=== PATIENT | male | born 1950 | race Caucasian/White ===

== ENCOUNTER → 2019-07-13 09:51 | Outpatient (BNVA) | payer MEDICARE, OTHER, SELFPAY | PROVIDERS: Family Provider Nurse Practitioner Family; PCP Nurse Practitioner Family; Visit Provider Urology | DX: R97.20 Elevated prostate specific antigen [PSA] (principal) | CPT/HCPCS: 84153 ==

== ENCOUNTER → 2019-07-18 11:09 | Outpatient (BNVA) | payer MEDICARE, OTHER, SELFPAY | PROVIDERS: Family Provider Nurse Practitioner Family; PCP Nurse Practitioner Family; Visit Provider Urology | DX: R97.20 Elevated prostate specific antigen [PSA] (principal) | CPT/HCPCS: 81001 ==

== ENCOUNTER → 2020-01-18 15:05 | Outpatient (BNVA) | payer MEDICARE, OTHER, SELFPAY | PROVIDERS: Family Provider Nurse Practitioner Family; PCP Nurse Practitioner Family; Visit Provider Urology | DX: R97.20 Elevated prostate specific antigen [PSA] (principal) | CPT/HCPCS: 84153 ==

== ENCOUNTER → 2020-01-23 12:54 | Outpatient (BNVA) | payer MEDICARE, OTHER, SELFPAY | PROVIDERS: Family Provider Nurse Practitioner Family; PCP Nurse Practitioner Family; Visit Provider Urology | DX: C64.2 Malignant neoplasm of left kidney, except renal pelvis (principal); R97.20 Elevated prostate specific antigen [PSA] | CPT/HCPCS: 81001 ==

== ENCOUNTER → 2020-10-17 10:46 | Outpatient (BNVA) | payer MEDICARE, SELFPAY | PROVIDERS: Family Provider Nurse Practitioner Family; PCP Nurse Practitioner Family; Visit Provider Urology | DX: R97.20 Elevated prostate specific antigen [PSA] (principal) | CPT/HCPCS: 84153 ==

== ENCOUNTER → 2020-10-21 09:22 | Outpatient (BNVA) | payer MEDICARE, SELFPAY | PROVIDERS: Family Provider Nurse Practitioner Family; PCP Nurse Practitioner Family; Visit Provider Urology | DX: R97.20 Elevated prostate specific antigen [PSA] (principal); C64.2 Malignant neoplasm of left kidney, except renal pelvis | CPT/HCPCS: 81003 ==

== ENCOUNTER 2021-04-23 12:19 | Outpatient (CLI) | payer MEDICARE, SELFPAY ==
--- NOTE | 2021-04-23 15:35 | N.ONRAD NP_ITS ---
Radiation Oncology New Patient Visit Patient: Emil Grissom MR#: [id number] : 1950> Age: 71> Sex: Male> Dictated by: Dr. Armin Bowling Date of Service: 04/23/2021 Referring Physician(s) : Dr. Abhay Wilder Diagnosis: Prostate, adenocarcinoma, PSA 4.7, Adel 4+3 equal 7 (grade group 3), Stage T1c N0M0; Risk Group: Unfavorable Intermediate Radiotherapy to date: Summary > No prior radiation therapy. Chief Complaint / History of Present Illness: Mr. Grissom is a 71-year-old gentleman with a history of a left nephrectomy for renal cell carcinoma a little over 9 years ago who was referred to Dr. Abhay Wilder because of a history of mildly elevated PSAs. His exam at that time on 12/17/2020 revealed a smooth firm prostate with no suspicious abnormalities. Dr. Wilder referred him for an MR of the pelvis. The prostate gland measured 4.3 x 3.2 x 5.1 cm with a volume of 46 cc. In the right peripheral zone and an 11 mm focus with a PI-RADS 4 category was seen. The prostate capsule was intact and there were no enlarged lymph nodes. Because of this finding Dr. Wilder recommended prostate biopsies. The time of biopsy the ultrasound revealed a hypoechoic area at the right base. No abnormality was noted in the mid gland. Focused biopsies were taken from the right base and right mid gland and then routine geographic biopsies were obtained from the right apex and the left side of the prostate. The biopsies from the right apex and the left lobe of the prostate were all negative. And the right mid gland Adel 4+3 adenocarcinoma was obtained in 4 out of 4 cores. The percent of biopsy tissue involved was 16% and a total linear millimeters of carcinoma was 6 mm. On the right base, Adel 4+3 carcinoma was obtained in 3 out of 3 cores. The percent of biopsy tissue involved by tumor was 99% in the total linear millimeters of carcinoma was 27 mm. No periprosthetic tissue involvement was found in either area. Bone scan and CT of the abdomen and pelvis were obtained for staging. The bone scan was negative. The CT was negative for any metastatic disease, though indeterminant densities were noted in the right lobe of the liver and in the inferior pole of the right kidney. A follow-up MRI was recommended of these [address] Wilder saw Mr. Grissom 04/01/2021 to discuss his pathology and review his staging. He feels that the abnormalities in the liver and right kidney are benign and do not need additional imaging. He discussed both radical prostatectomy and prostate radiation with Mr. Grissom. Mr. Grissom wants to proceed with radiation and is referred for evaluation and recommendations. Current Medications: Ascorbic Acid, aspirin, cholecalciferol, hydroCHLOROthiazide, multivitamin, olmesartan Medoxomil, omega-3 Fatty Acids, saw [place]. Allergies: No Known Allergies Medical History: History of renal cell cancer. No history of collagen vascular disease. No previous radiation therapy. Surgical History: Left nephrectomy. Family History: Father is at age 70 having experienced stroke. Social History: Last screened on 04/23/2021 - Never smoked. Last screened on 04/23/2021 - Drinks occasionally. Current Complaints / Review of Systems: . General: No weight change, decreased appetite, fever night sweats, weakness or fatigue. Head /neck: No change in vision, cataracts, glaucoma, nosebleeds, sore throats, hoarseness. He does have hearing loss. Lungs: No cough, hemoptysis, wheezing, lung disease, pleurisy, shortness of breath, or loud snoring. Cardiac: No chest discomfort, tightness, or pain, irregular heartbeat, orthopnea, lower extremity swelling, heart murmur, varicose veins. He does have high blood pressure and is on medication. Gastrointestinal: No dysphagia, nausea, heartburn, abdominal pain, gallbladder disease, change in bowel habits, bleeding. Genitourinary: No hematuria, kidney stones, urinary frequency, hesitancy, dysuria, incontinence,. He has nocturia x1. Nervous system: No headaches, head injury, blackouts, double vision, dizziness, seizures, numbness, paralysis or stroke, tremors or shakes, difficulty walking, difficulty speaking, difficulty writing, change in memory, depression, or anxiety. Bones and joints: No joint pain, swollen joints, back pain or injury, or gout. He has mild morning stiffness. Hematologic no anemia or blood transfusions. Vital Signs: Performed on 04/23/2021 1:28 PM BMI - 32.17 kg/m2 (high), Height - 70 in, Weight - 224.2 lbs, Temperature - 97.8 f, Pulse - 88 /min, Respiration - 18 /min, O2 Sat - 97 %, Pain - 0, Fatigue - 0 and BP - 145/ 92 mm(hg)(high). Physical Exam: Alert, oriented, in no acute distress. He has no cervical or supraclavicular lymphadenopathy. Lungs are clear to percussion. Heart on auscultation no rales rhonchi or wheezes. Heart rhythm regular. No murmur gallop or rub. Abdomen no distention. Bowel sounds normal. No organomegaly or mass or tenderness. Musculoskeletal no bone tenderness. Normal gait without assistance. Rectal exam was not performed. Dr. Wilder found the prostate to be firm and smooth. The patient indicated Dr. Dias, who has also seen him, has never detected any abnormality on exam. Performance Status: ECOG 0 Pathology: Prostatic adenocarcinoma, Adel score 4+3 equal 7 in 7 of 7 cores from the right mid gland and base, grade group 3 Lab: PSA 4.7 Imaging: See HPI Impression: Asymptomatic carcinoma of the prostate, grade group 3, risk group unfavorable intermediate. Mr. Grissom was very firm in that he does not desire surgery. He wishes to proceed with external beam radiation. I discussed with him his grade group/risk group and explained that the NCCN guidelines recommend ADT in conjunction with external beam radiation in this situation. I explained the rationale for ADT. I told him we usually start it 4 -6 weeks before the initiation of external beam radiation. I told him in the setting of unfavorable intermediate disease that treatment of pelvic nodes can be considered according to NCCN guidelines. I told him Dr. Garza will make that final determination. I reviewed the side effects and possible complications of radiation. I discussed that there is a rare but real risk of bowel or bladder injury that could require surgery or even a permanent ostomy. I also discussed that ADT can produce night sweats, hot flashes, fatigue, mood swings, and impotence. Also discussed the potential for impotence related to radiation. We also discussed his history of renal cell carcinoma of the kidney and the abnormalities that were seen on the recent CT scan in the right lobe of the liver and the right kidney. I suggested that when I refer him to Dr. Abbott for the initiation of hormonal therapy that we also request Dr. Abbott follow him long-term for the renal cell carcinoma. He is in agreement with that. Plan: Referred to Dr. Abbott for the initiation of ADT. Simulate for external beam radiation in about [address] Abbott to follow him for his renal cell carcinoma and the abnormalities seen in the liver and right kidney on recent CT. Signed by: 04/23/2021 3:34:33 PM <<Signature on File>> Time spent with patient: CPT Code: CPT Code:
== END 2021-04-23 12:20 | disposition home or self-care (01) ==
LOC: ONCMED 12:27
PROVIDERS: PCP Nurse Practitioner Family; Visit Provider Specialist
DX: C61 Malignant neoplasm of prostate (principal); Z90.5 Acquired absence of kidney; Z85.528 Personal history of other malignant neoplasm of kidney; Q44.7 Other congenital malformations of liver
CPT/HCPCS: 99205

== ENCOUNTER 2021-04-30 12:29 | Outpatient (CLI) | payer MEDICARE, SELFPAY ==
--- NOTE | 2021-04-30 14:38 | ONC CON_ITS ---
Dr. Abbott New Patient Note Patient: Emil Grissom Unit #: [id number]: 1950 Dicatated By: Smita Abbott M.D.Date of Visit: Apr 30, 2021 Onc MED New Patient/Consult Referring Physician: Abhay Wilder History of Present Illness: Mr. Emil Grissom, is a 71-year-old gentleman with a history of mildly elevated PSA underwent urology evaluation and LOR done on December 17, 2020 showed smooth firm prostate with no suspicious abnormality. Patient had some miscommunication with Dr. Dias's office regarding lab work-up schedule, decided to go to Dr. Wilder, urologist in [place], who ordered MRI scan of the pelvis which was done on January 20, 2021 showed lesion within the right peripheral zone with features suspicious for prostate carcinoma PI-RADS 4, no enlarged lymph nodes. Dr. Wilder recommended prostate biopsies patient underwent ultrasound-guided prostate gland biopsies on February 27, 2021 which showed biopsy from right apex and left lobe of prostate were negative. In the right mid gland shows [place] score 4+3 adenocarcinoma in 4 of 4 cores with 16% involvement. On the right base, Ani score 4+3 carcinoma was seen in 3 out of 3 cores, 99% involvement. No periprostatic tissue involvement. Subsequently patient underwent CT scan of abdomen pelvis and bone scan on March 26, 2021 which shows no evidence of metastatic disease, though indeterminant densities were noted in the right lobe of the liver size was about 1 cm and in the inferior pole of right kidney. A follow-up MRI scan was recommended to evaluate these 2 areas but as per patient Dr. Wilder reviewed the CT scan of the abdomen pelvis and felt those abnormalities in the liver and right kidney are benign so no additional imaging was done. Treatment options including radical prostatectomy and prostate radiation were discussed, patient opted for radiation therapy. [facility] [place] [facility] Patient has history of renal cell carcinoma, status post left nephrectomy, as per patient it was done about 9 years ago, he was followed by Dr. Dias with regular chest x-rays and lab and after 5 years of follow-up, as per patient he was informed That no further follow-up is needed patient denies smoking, occasional alcohol use patient denies any dysuria or hematuria, denies any new bony pains Past Medical History: Mr. Grissom's medical history consists of history of renal cell cancer. Past Surgical History: Mr. Grissom's surgical/procedural history consists of left nephrectomy. Medications: Ascorbic Acid 1 Tablet (of 500 mg) Oral daily, Aspirin 1 Tablet (of 81 mg) Tablet, enteric coated Oral daily, Cholecalciferol 1 Capsule (of 10 mcg ) Oral daily, hydroCHLOROthiazide 1 Tablet (of 12.5 mg) Oral daily, Multivitamin 1 Tablet Oral daily, Olmesartan Medoxomil 1 Tablet (of 20 mg) Oral daily, [place]-3 Fatty Acids 1 Capsule (of 1000 mg) Oral daily, Saw [place] 1 Tablet (of 160 mg) Oral daily Allergies: No Known Allergies. Social History: Mr. Grissom is . Mr. Grissom has never smoked. He drinks occasionally. Family History: Mr. Grissom's father at age 70: stroke. Review Of Symptoms: Review of Systems is not available for this patient. Vital Signs: Performed on Apr 30, 2021 13:07: 0, 0, 32.00 (HIGH), 2.19 sq.m, 70.00 in, 99 %, 81 /min, 18 /min, 139/92 mm(hg), 98.1 F (LOW), and 223 lbs (LOW). Performance Status: 0 - Fully active, able to carry on all predisease activities without restrictions. (ECOG) Physical Examination: ENMT - No mouth sores, no thrush, no jaundice, Respiratory - Lungs are clear to auscultation, Cardiovascular - Regular rate and rhythm of heart, Abdomen - Soft, bowel sounds present, Extremities - No visible edema. Lab/Imaging: Most recent lab results are not available for this patient. Impression: T1c, N0 M0, adenocarcinoma of the prostate per ultrasound-guided biopsy of prostate gland done on February 27, 2021 which confirmed adenocarcinoma in the right mid gland Ani score 4+3, 4 out of 4 cores with 60% involvement and on the right base, [place] score 4+3 carcinoma in 3 out of 3 cores, with a 99% involvement, no periprostatic tissue involvement Stage I, unfavorable intermediate Bone scan/CT scan of abdomen pelvis done on March 26, 2021 shows no evidence of metastatic disease but incidental finding shows 1 cm hypoattenuated lesion within the right lobe of the liver near the hepatic dome with indeterminate density and an exophytic lesion at the inferior pole of right kidney measuring 2.2 cm with indeterminate density, status post left nephrectomy History of renal cell carcinoma status post left nephrectomy over 9 years ago Plan: Discussed with patient regarding his disease status and treatment options, clinically, patient has early stage prostate cancer, Ani score 4+3, features suggestive of unfavorable intermediate as his PSA was 4.7 at the time of diagnosis,., Based on NCCN guidelines, would recommend short course of ADT with Zoladex 10.8 mg IM every 3 months x2 in neoadjuvant/concurrent/adjuvant fashion. Patient has already seen radiation oncology and scheduled to start radiation therapy 4 to 6-week after first dose of Zoladex. As far as incidental finding of hepatic lesion and right kidney lesions concern, we will CT scan of abdomen pelvis in 3 months and if there is a change in size Of any lesion, may consider biopsy. All the side effect possible benefits associated with ADT including but not limited to, hot flashes, generalized weakness and fatigue, mood swings, fatigue, erectile dysfunction, fluid retention were mentioned. Further teaching will be done by chemotherapy nurse. We will obtain approval from his insurance prior to the treatment and patient return to clinic 3 months after first dose of Zoladex, with PSA and follow-up CT scan of abdomen pelvis. Signed By: Smita Abbott M.D. <<Signature on File>>
== END 2021-04-30 12:30 | disposition home or self-care (01) ==
LOC: ONCMED 12:34
PROVIDERS: PCP Nurse Practitioner Family; Visit Provider Internal Medicine Hematology & Oncology
DX: C61 Malignant neoplasm of prostate (principal); K76.9 Liver disease, unspecified; N28.9 Disorder of kidney and ureter, unspecified; Z85.528 Personal history of other malignant neoplasm of kidney; Z79.818 Long term (current) use of other agents affecting estrogen receptors and estrogen levels
CPT/HCPCS: 99205

== ENCOUNTER 2021-05-05 12:57 | Outpatient (CLI) | payer MEDICARE, SELFPAY ==
--- NOTE | 2021-05-05 13:15 | CT_ITS ---
WS: [id number] CT ABDOMEN AND PELVIS WITH CONTRAST HISTORY: MALIGNANT NEOPLASM OF PROSTATE,LIVER DISEASE, disorder of kidneys. LEFT renal cancer. TECHNIQUE: Imaging performed of the abdomen and pelvis with IV contrast. Single phase imaging of the abdomen. Coronal and sagittal reformats are submitted. All CT scans at [facility] use at edi st one of these dose optimization techniques: automated exposure control; mA and/or kV adjustment per patient size (includes targeted exams where dose is matched to clinical indication); or iterative re construction. IV CONTRAST: Visipaque 320; 95 mL IV. Oral contrast: Yes. DLP: 1197.35 mGycm COMPARISON: 03/26/2021 and 09/04/2011 Lower thorax: Lung bases are clear. Heart is normal size. Small hiatal hernia. Liver/biliary system: Again noted is a low-attenuation lesion in the diaphragmatic dome measuring 8 m m in diameter which is unchanged. No additional or new lesions within the liver. Normal portal vein. Gallbladder: Normal. No gallstones or wall thickening. No pericholecystic fluid. Pancreas: Normal size pancreas and pancreatic duct. No adjacent inflammation. Spleen: Normal size spleen. No mass or infarct. Adrenal glands: Normal RIGHT adrenal gland. Prior LEFT adrenalectomy. Right kidney: Normal size kidney. Low-attenuation mass from the mid lateral kidney measures 1.9 cm in diameter and unchanged since 03/26/2021. This was also present in 2011 but this nodule has increased in size from 1.1 cm. Probably representing a small complex cyst but recommend continued evaluation du e to its increase in size. No obstruction. Cortical scar lower pole. Left kidney: Prior LEFT nephrectomy. No mass at the renal bed. Aorta: Mild atherosclerosis with no aneurysm. Lymphadenopathy: None. Free fluid: None. GI tract: Normal appendix. Mild diffuse constipation. No GI tract obstruction. Abdominal wall: Small fat-containing umbilical hernia. Pelvis: No free fluid or adenopathy within the pelvis. Well-distended urinary bladder. Prostate gland is slightly enlarged with central calcifications. Inguinal canals are patent bilaterally containing fat only. Bones: No osteoblastic or osteolytic lytic bone disease. CT/CT abdomen pelvis w con* [id number] IMPRESSION: 1. Status post LEFT adrenalectomy and LEFT nephrectomy. No recurrent mass or a denopathy in the renal bed. 2. Stable indeterminate lesion along the RIGHT diaphragmatic surface of the li melany. Low-attenuation lesion measures 8 mm. Recommend additional continued follo w-up. 3. Indeterminate low-attenuation lesion in the mid lateral RIGHT kidney. No in crease in size since 03/26/2021. This low-attenuation lesion was present in 2011 but increased in size from 1.1 to 1.9 cm. Suspect this probably a complex cyst . This can also be reevaluated on follow-up CT or MRI evaluation along with the hepatic lesion.
[2021-05-05 14:31] LABS: Blood Urea Nitrogen 18 mg/dL (8-23); Glomerular Filtration Rate 54.7 mL/min (90-130)
[2021-05-05] MEDS: iodixanol 320 mg/mL 100mL Btl IV (14:45)
[2021-05-05] MEDS: iohexol 300 mg/mL 50 mL Btl PO (14:46)
== END 2021-05-05 12:58 | disposition home or self-care (01) ==
PROVIDERS: PCP Nurse Practitioner Family; Visit Provider Internal Medicine Hematology & Oncology
DX: C61 Malignant neoplasm of prostate (principal); N28.9 Disorder of kidney and ureter, unspecified; K76.9 Liver disease, unspecified; Q89.1 Congenital malformations of adrenal gland; Z90.5 Acquired absence of kidney
CPT/HCPCS: 74177; 82565; 84520; Q9967

== ENCOUNTER 2021-05-07 10:35 | Outpatient (CLI) | payer MEDICARE, SELFPAY ==
[2021-05-07] MEDS: lidocaine 1% INJ 20 mL INJECTION (11:10)
[2021-05-07] MEDS: goserelin acetate 10.8 mg Implant SUBCUT (11:25)
== END 2021-05-07 10:36 | disposition home or self-care (01) ==
PROVIDERS: PCP Nurse Practitioner Family; Visit Provider Internal Medicine Hematology & Oncology
DX: C61 Malignant neoplasm of prostate (principal); Z79.818 Long term (current) use of other agents affecting estrogen receptors and estrogen levels
CPT/HCPCS: 96372; 96402; J9202

== ENCOUNTER 2021-07-24 06:46 | Outpatient (RCR) | payer MEDICARE, SELFPAY ==
--- NOTE | 2021-06-24 | CT_ITS ---
Radiation Therapy Planning CT images; total exam DLP: 983.33 mGy-cm MTDD
--- NOTE | 2021-06-30 09:46 | ONCRAD TMN_ITS ---
Radiation Oncology Treatment Management Note Patient Name: Emil Grissom Date of : 1950 Date of Service: 06/30/2021 Attending Physician: Torstne Garza M.D. Emil Grissom is a 71 year old white male diagnosed with a clinical stage IIC (T1cN0), unfavorable intermediate risk prostate. He initially was identified to have a PSA level of 4.7 ng/mL in November of 2020. A TRUS biopsy performed on February 27, 2021 identified a 46 cc prostate. The pathology report diagnosed an adenocarcinoma of the prostate gland with a Ani Score of 4+3 (Grade Group 3) involving 16% of the right mid-core, and 99% of the sample from the right base, A nuclear bone scintigraphy and thoracoabdominopelvic CT scan excluded metastatic disease. He was prescribed the first cycle of Zoladex on May 07, 2021 by Smita Abbott M.D. The patient has received 3 Gy of a prescribed 60 Jeffery to the prostate and seminal vesicles with an intensity modulated radiotherapy plan utilizing a step and shoot treatment technique. Upon review of systems, he denied any gastrointestinal complaints related to radiotherapy. On physical examination, the patient weighed 223 lbs. His temperature was 97.2 ???F and the blood pressure was 152/87 mmHg. The pulse was 67 bpm and his respiratory rate was 16. No erythema within the treatment pickering. Continue hypofractionated prostate radiotherapy as prescribed. Signed by: Dr. Torsten Garza 06/30/2021 9:44:14 AM
--- NOTE | 2021-07-07 10:17 | ONCRAD TMN_ITS ---
Radiation Oncology Weekly Treatment Management Patient: Jaciel Moncada MR#: [id number] : 1950> Attending Physician: Dr. Armin Bowling Date of Service: 07/07/2021 Referring Physician(s) : Smita Abbott M.D. Diagnosis: C61 - Malignant neoplasm of prostate, Diagnosed 05/01/2021 (Active) Radiotherapy to date: Course: Prostate 2021, Treatment Site: Prostate Ca, Ref. ID: [id number], Energy: 15X, Dose/Fx (cGy): 300, #Fx: , Dose Correction (cGy): 0, Total Dose (cGy): 1,800, Start Date: 06/30/2021, End Date: 07/07/2021, Elapsed Days: 7 Reason for visit: The patient is being seen today as part of their regularly scheduled weekly on treatment visits to assess for acute toxicities from radiotherapy. Review of Systems: Performance status is normal. Appetite is normal. He has no bowel complaints. After 3 treatments, he did develop urinary intermittency. His stream starts normally and then will weaken and sometimes cut off. Several minutes later he can go back and empty his bladder normally. We discussed the use of Flomax, including the rare episode of severe orthostatic hypotension. For now we are not going to start it, but he understands that he may request it at any time. Vital Signs: Performed on 07/07/2021 9:40 AM BMI - 32.457 kg/m2 (high), Height - 70 in, Weight - 226.2 lbs, Temperature - 96.3 f, Pulse - 63 /min, Respiration - 20 /min, O2 Sat - 99 %, Pain - 1, Fatigue - 0 and BP - 153/ 84 mm(hg)(high/). Physical Exam: Alert, oriented, no acute distress. No skin reaction. No inguinal lymphadenopathy. No lower pelvic tenderness. Imaging: Radiation therapy imaging related to accurate target localization (i.e. KV, MV and CBCT) was reviewed. Appropriate changes, if any, were made to ensure treatment accuracy. Plan: Continue hypofractionated radiation per treatment plan. Signed by: Dr. Armin Bowling 07/07/2021 10:16:27 AM
--- NOTE | 2021-07-14 09:46 | ONCRAD TMN_ITS ---
Radiation Oncology Treatment Management Note Patient Name: Emil Grissom Date of : 1950 Date of Service: 07/14/2021 Attending Physician: Torsten Garza M.D. Emil Grissom is a 71 year old white male diagnosed with a clinical stage IIC (T1cN0), unfavorable intermediate risk prostate. He initially was identified to have a PSA level of 4.7 ng/mL in November of 2020. A TRUS biopsy performed on February 27, 2021 identified a 46 cc prostate. The pathology report diagnosed an adenocarcinoma of the prostate gland with a Ani Score of 4+3 (Grade Group 3) involving 16% of the right mid-core, and 99% of the sample from the right base, A nuclear bone scintigraphy and thoracoabdominopelvic CT scan excluded metastatic disease. He was prescribed the first cycle of Zoladex on May 07, 2021 by Smita Abbott M.D. The patient has received 33 Gy of a prescribed 60 Jeff[place] to the prostate and seminal vesicles with an intensity modulated radiotherapy plan utilizing a step and shoot treatment technique. Upon review of systems, he denied any gastrointestinal complaints related to radiotherapy. His urinary stream has improved with Flomax. On physical examination, the patient weighed 223 lbs. His temperature was 96.9 ???F and the blood pressure was 160/81 mmHg. The pulse was 77 bpm and his respiratory rate was 18. There was no erythema within the treatment pickering. Continue hypofractionated prostate radiotherapy as planned. Signed by: Dr. Torsten Garza 07/14/2021 9:45:02 AM
--- NOTE | 2021-07-21 09:32 | ONCRAD TMN_ITS ---
Radiation Oncology Treatment Management Note Patient Name: Emil Grissom Date of : 1950 Date of Service: 07/21/2021 Attending Physician: Torsten Garza M.D. Emil Grissom is a 71 year old white male diagnosed with a clinical stage IIC (T1cN0), unfavorable intermediate risk prostate. He initially was identified to have a PSA level of 4.7 ng/mL in November of 2020. A TRUS biopsy performed on February 27, 2021 identified a 46 cc prostate. The pathology report diagnosed an adenocarcinoma of the prostate gland with a Ani Score of 4+3 (Grade Group 3) involving 16% of the right mid-core, and 99% of the sample from the right base, A nuclear bone scintigraphy and thoracoabdominopelvic CT scan excluded metastatic disease. He was prescribed the first cycle of Zoladex on May 07, 2021 by Smita Abbott M.D. The patient has received 48 Gy of a prescribed 60 Jeffery to the prostate and seminal vesicles with an intensity modulated radiotherapy plan utilizing a step and shoot treatment technique. Upon review of systems, he denied any gastrointestinal complaints related to radiotherapy. On physical examination, the patient weighed 223 lbs. His temperature was 96.5 ???F and the blood pressure was 147/89 mmHg. The pulse was 65 bpm and his respiratory rate was 16. There was no erythema within the treatment pickering. Continue hypofractionated prostate radiotherapy as prescribed. Signed by: Dr. Torsten Garza 07/21/2021 9:30:49 AM
== END 2021-07-24 23:59 | disposition home or self-care (01) ==
LOC: ONCMED 06:46
PROVIDERS: PCP Nurse Practitioner Family; Visit Provider Radiology Radiation Oncology
DX: Z51.0 Encounter for antineoplastic radiation therapy (principal); C61 Malignant neoplasm of prostate; K76.9 Liver disease, unspecified; N28.9 Disorder of kidney and ureter, unspecified; Z79.899 Other long term (current) drug therapy
CPT/HCPCS: 77300; 77301; 77334; 77336; 77338; 77385; 77470

== ENCOUNTER 2021-08-22 06:39 | Outpatient (RCR) | payer MEDICARE, SELFPAY ==
--- NOTE | 2021-07-25 09:16 | N.ONRD TS_ITS ---
Radiation OncologyTreatment Summary Patient Name: Emil Grissom Date of : 1950 Date of Service: 07/25/2021 Attending Physician: Torsten Garza M.D. Emil Grissom has completed prostate radiotherapy for the management of a clinical stage IIC (T1cN0), unfavorable intermediate risk prostate. He initially was identified to have a PSA level of 4.7 ng/mL in November of 2020. A TRUS biopsy performed on February 27, 2021 identified a 46 cc prostate. The pathology report diagnosed an adenocarcinoma of the prostate gland with a Ani Score of 4+3 (Grade Group 3) involving 16% of the right mid-core, and 99% of the sample from the right base, A nuclear bone scintigraphy and thoracoabdominopelvic CT scan excluded metastatic disease. He was prescribed the first cycle of Zoladex on May 07, 2021 by Smita Abbott M.D. Daily radiotherapy was administered between the dates of June 30, 2021 through July 25, 2021. A prescribed dose of 60 Gy was delivered in 20 fractions encompassing 26 elapsed days. The prostate gland and proximal seminal vesicles were treated utilizing an IMRT plan using a step and shoot treatment technique. The plan arranged nine gantry angles (0???, 43???, 60???, 100???, 150???, 210???, 260???, 260???, 300???, and 330???) replicating an arc. The collimator rotation was 0???. The field sizes measured between 7.4 cm x 9.5 cm to 8.8 cm x 9.5 cm. The SSDs measured a minimum of 79.2 cm to a maximum of 87.6 cm. The ports delivered 137 MU, 118 MU, 96 MU, 115 MU, 106 MU, 100 MU, 123 MU, 91 MU, and 115 MU corresponding to the gantry angles described. All treatments were performed on the [employer] linear accelerator with an isocentric technique. The dose was calculated by Anisotropic Analytic Algorithm. A photon energy of 15 MV was prescribed. The plan was normalized to deliver 100% of the prescription dose to 95% of the planning target volume. Signed by: Dr. Torsten Garza 07/25/2021 9:14:57 AM
[2021-08-07 13:48] LABS: Prostate Specific Antigen 0.224 ng/mL (0-4)
[2021-08-07] MEDS: lidocaine 1% INJ 20 mL INJECTION (15:30)
[2021-08-07] MEDS: goserelin acetate 10.8 mg Implant SUBCUT (15:40)
--- NOTE | 2021-08-07 16:32 | ONC FU_ITS ---
Dr. Abbott follow up note Patient: Emil Grissom Unit #: [id number]: 1950 Dicatated By: Smita Abbott M.D.Date of Visit:Aug 07, 2021 Onc Med Follow-up/Prog Note History of Present Illness: Mr. Emil Grissom, is a 71-year-old gentleman with a history of mildly elevated PSA underwent urology evaluation and LOR done on December 17, 2020 showed smooth firm prostate with no suspicious abnormality. Patient had some miscommunication with Dr. Dias's office regarding lab work-up schedule, decided to go to Dr. Wilder, urologist in [place], who ordered MRI scan of the pelvis which was done on January 20, 2021 showed lesion within the right peripheral zone with features suspicious for prostate carcinoma PI-RADS 4, no enlarged lymph nodes. Dr. Wilder recommended prostate biopsies patient underwent ultrasound-guided prostate gland biopsies on February 27, 2021 which showed biopsy from right apex and left lobe of prostate were negative. In the right mid gland shows Ani score 4+3 adenocarcinoma in 4 of 4 cores with 16% involvement. On the right base, Linneus score 4+3 carcinoma was seen in 3 out of 3 cores, 99% involvement. No periprostatic tissue involvement. Subsequently patient underwent CT scan of abdomen pelvis and bone scan on March 26, 2021 which shows no evidence of metastatic disease, though indeterminant densities were noted in the right lobe of the liver size was about 1 cm and in the inferior pole of right kidney. A follow-up MRI scan was recommended to evaluate these 2 areas but as per patient Dr. Wilder reviewed the CT scan of the abdomen pelvis and felt those abnormalities in the liver and right kidney are benign so no additional imaging was done. Treatment options including radical prostatectomy and prostate radiation were discussed, patient opted for radiation therapy. [facility] [place] [facility] Patient has history of renal cell carcinoma, status post left nephrectomy, as per patient it was done about 9 years ago, he was followed by Dr. Dias with regular chest x-rays and lab and after 5 years of follow-up, as per patient he was informed That no further follow-up is needed patient denies smoking, occasional alcohol use patient denies any dysuria or hematuria, denies any new bony pains Started on short-term treatment with Zoladex on May 07, 2021, treated with concurrent radiation therapy which he completed on July 25, 2021. And second and final dose of Zoladex was given on August 07 2021 Came for follow-up, denies any specific complaints except occasional hot flashes and mild off-and-on dysuria, now improving. No hematuria, no melena or hematochezia, no mucus in stool, no pelvic pain, no fever or chills, patient has completed concurrent ADT/radiation therapy on July 25, 2021, Medications: Ascorbic Acid 1 Tablet (of 500 mg) Oral daily, Cholecalciferol 1 Capsule (of 10 mcg ) Oral daily, Flomax 1 Capsule (of 0.4 mg) Oral daily, hydroCHLOROthiazide 1 Tablet (of 12.5 mg) Oral daily, Mucinex Tablet SR 12 HR Oral PRN, Multivitamin 1 Tablet Oral daily, Olmesartan Medoxomil 1 Tablet (of 20 mg) Oral daily, Rebuck-3 Fatty Acids 1 Capsule (of 1000 mg) Oral daily Allergies: No Known Allergies. Review of Systems: Review of Systems is not available for this patient. Vital Signs: Performed on Aug 07, 2021 15:03 Height - 70.00 in Weight - 218.8 lbs (LOW) BSA - 2.17 sq.m BMI - 31.39 (HIGH) Temperature - 97.7 F (LOW) Pulse - 90 /min Respiration - 18 /min BP - 150/85 mm(hg) (HIGH) O2 Sat - 96 % Pain - 0 Fatigue - 2 Performance Status: 0 - Fully active, able to carry on all predisease activities without restrictions. (ECOG) Physical Examination: ENMT - No mouth sores, no thrush, no jaundice, Respiratory - Lungs are clear to auscultation, Cardiovascular - Regular rate and rhythm of heart, Abdomen - Soft, bowel sounds present, Extremities - No visible edema. Lab/Imaging: Most recent lab results are not available for this patient. Impression: T1c, N0 M0, adenocarcinoma of the prostate per ultrasound-guided biopsy of prostate gland done on February 27, 2021 which confirmed adenocarcinoma in the right mid gland Ani score 4+3, 4 out of 4 cores with 60% involvement and on the right base, Ani score 4+3 carcinoma in 3 out of 3 cores, with a 99% involvement, no periprostatic tissue involvement Clinical stage IIc Bone scan/CT scan of abdomen pelvis done on March 26, 2021 shows no evidence of metastatic disease but incidental finding shows 1 cm hypoattenuated lesion within the right lobe of the liver near the hepatic dome with indeterminate density and an exophytic lesion at the inferior pole of right kidney measuring 2.2 cm with indeterminate density, status post left nephrectomy Status post short course of ADT with Zoladex starting May 07, 2021 completed on August 07, 2021, concurrent with radiation therapy which she completed on July 25, 2021 History of renal cell carcinoma status post left nephrectomy over [address] scan of abdomen pelvis done on May 05, 2021 shows indeterminate low-attenuation lesion in the mid to lateral right kidney. No increase in size since March 2021 this low-attenuation lesion was present in 2011 but increase in size from 1.1 to 1.9 cm. Suspect this is probably a complex cyst. Stable indeterminate lesion along the right diaphragmatic surface of liver. Low-attenuation lesion measured 8 mm. Plan: Discussed with patient regarding his lab PSA 0.224 Clinically, patient doing well with no new signs symptoms suggestive of recurrence of disease, his PSA continue to improve, patient had recently completed concurrent ADT/radiation therapy on July 25, 2021. Today, we will proceed with his second/last dose of Zoladex and then he will return to clinic in 6 months with PSA and testosterone With follow-up CT scan of abdomen pelvis to monitor subcentimeter right diaphragmatic surface of the liver lesion and right mid lateral kidney lesion Signed By: Smita Abbott M.D. <<Signature on File>>
--- NOTE | 2021-08-22 09:22 | ONCRAD EPV_ITS ---
Radiation Oncology Follow-Up Note Patient Name: Emil Grissmo Date of : 1950 Date of Service: 08/22/2021 Attending Physician: Torsten Garza M.D. Emil Grissom returned to my office this morning for a routinely scheduled post-radiotherapy appointment. He completed prostate radiotherapy in June for the management of a clinical stage IIC (T1cN0), unfavorable intermediate risk prostate. He initially was identified to have a PSA level of 4.7 ng/mL in November of 2020. A TRUS biopsy performed on February 27, 2021 identified a 46 cc prostate. The pathology report diagnosed an adenocarcinoma of the prostate gland with a Bolivar Score of 4+3 (Grade Group 3) involving 16% of the right mid-core, and 99% of the sample from the right base, A nuclear bone scintigraphy and thoracoabdominopelvic CT scan excluded metastatic disease. He was prescribed the first cycle of Zoladex on May 07, 2021 by Smita Abbott M.D. Daily radiotherapy was administered between the dates of June 30, 2021 through July 25, 2021. A prescribed dose of 60 Gy was delivered in 20 fractions encompassing 26 elapsed days. On review of systems, the patient denied lower urinary tract symptoms and he did not report any gastrointestinal complaints. On physical examination, he weighed 221 pounds. The temperature was 97.2 ???F and his blood pressure was 153/89 mmHg. The pulse was 72 bpm and his respiratory rate was 18 breaths per minute. A genitourinary exam was deferred. In summary, Mr. Grissom returned for a routine post-radiotherapy follow-up. A PSA obtained on August 07 was 0.22 ng/mL. He was also administered the second cycle of two cycles of Zoladex during this appointment. He will continue follow-up with his urologist. Signed by: Torsten Garza 08/22/2021 9:21:31 AM
== END 2021-08-23 23:59 | disposition home or self-care (01) ==
LOC: ONCMED 06:39
PROVIDERS: Internal Medicine Hematology & Oncology; PCP Nurse Practitioner Family; Visit Provider Radiology Radiation Oncology
DX: Z51.0 Encounter for antineoplastic radiation therapy (principal); C61 Malignant neoplasm of prostate; K76.9 Liver disease, unspecified; N28.9 Disorder of kidney and ureter, unspecified; Z90.5 Acquired absence of kidney; Z85.528 Personal history of other malignant neoplasm of kidney; Z79.818 Long term (current) use of other agents affecting estrogen receptors and estrogen levels
CPT/HCPCS: 36415; 77014; 77336; 77385; 77427; 84153; 96372; 96401; 99215; J9202

== ENCOUNTER 2022-02-02 14:53 | Outpatient (CLI) | payer MEDICARE, SELFPAY ==
[2022-02-02 15:45] LABS: Blood Urea Nitrogen 20 mg/dL (8-23); Glomerular Filtration Rate 74.1 mL/min (90-130)
[2022-02-02] MEDS: iohexol 350 mg/mL 100 mL Btl IV (15:55)
--- NOTE | 2022-02-02 16:30 | CT_ITS ---
WS: [id number] CT ABDOMEN AND PELVIS WITH CONTRAST HISTORY: Liver and RIGHT renal lesions. History of LEFT nephrectomy for renal neoplasm. Prostate can er history. TECHNIQUE: Imaging performed of the abdomen and pelvis with IV contrast. Single phase imaging of the abdomen. Coronal and sagittal reformats are submitted. All CT scans at [facility] use at edi st one of these dose optimization techniques: automated exposure control; mA and/or kV adjustment per patient size (includes targeted exams where dose is matched to clinical indication); or iterative re construction. IV CONTRAST: Omnipaque 350; 95 mL IV. Oral contrast: No DLP: 1230.72 mGy.cm COMPARISON: 05/05/2021, 03/26/2021 and 09/04/2011 Lower thorax: Lung bases are clear. Heart is normal size. Small hiatal hernia. Liver/biliary system: Liver is normal size. Stable 8 mm low-attenuation lesion in the superior RIGHT lobe of the liver near the diaphragmatic surface. No change since 03/26/2021 no bile duct dilatation. No additional liver lesions. Normal portal vein. Gallbladder: Normal. No gallstones or wall thickening. No pericholecystic fluid. Pancreas: Normal size pancreas and pancreatic duct. No adjacent inflammation. Spleen: Normal size spleen. No mass or infarct. Adrenal glands: Normal RIGHT adrenal gland. Prior LEFT adrenalectomy. Right kidney: Normal size kidney. Reidentified is the hypodense nodule from the lower pole measuring 1.9 cm. Hounsfield units are very slightly elevated. Favor this is probably a complex cyst. Left kidney: Prior nephrectomy. No mass at the renal bed. Aorta: Mild atherosclerosis with no aneurysm. Lymphadenopathy: None. Free fluid: None. GI tract: Unremarkable. Abdominal wall: Fat containing umbilical hernia. Pelvis: No free fluid or adenopathy within the pelvis. Bones: Mild degenerative disc disease in the lumbar spine. No lumbar spine fracture. No destructive b one lesions. CT/CT abdomen pelvis w con* [id number] IMPRESSION: 1. No increase in size of the 8 mm low-attenuation nodule along the diaphragma tic surface of the liver. Stable since 03/26/2021. 2. Prior LEFT adrenalectomy and LEFT nephrectomy. No recurrent mass at the gemma gical bed. 3. No ascites or adenopathy within the abdomen and pelvis. 4. No increase in size in the minimally complex cyst inferior pole RIGHT kidne y measuring 1.9 cm. Stable since 03/26/2021. Recommend continued yearly surveill ance.
== END 2022-02-02 14:54 | disposition home or self-care (01) ==
LOC: RAD 14:53
PROVIDERS: PCP Nurse Practitioner Family; Visit Provider Internal Medicine Hematology & Oncology
DX: K76.9 Liver disease, unspecified (principal); N28.9 Disorder of kidney and ureter, unspecified; Z90.5 Acquired absence of kidney; E89.6 Postprocedural adrenocortical (-medullary) hypofunction
CPT/HCPCS: 74177; 82565; 84520

== ENCOUNTER 2022-02-02 14:58 | Outpatient (CLI) | payer MEDICARE, SELFPAY ==
[2022-02-02 15:52] LABS: Prostate Specific Antigen 0.064 ng/mL (0-4); Testosterone Total 17.3 ng/dL (193-740)
== END 2022-02-02 14:59 | disposition home or self-care (01) ==
LOC: LAB 14:58
PROVIDERS: PCP Nurse Practitioner Family; Visit Provider Internal Medicine Hematology & Oncology
DX: R97.20 Elevated prostate specific antigen [PSA] (principal)
CPT/HCPCS: 36415; 84153; 84403

== ENCOUNTER 2022-02-06 09:16 | Oncology outpatient (recurring) (ONCR) | payer MEDICARE, SELFPAY | END 2022-02-23 23:59 | disposition home or self-care (01) | LOC: ONCMED 09:18 | PROVIDERS: PCP Nurse Practitioner Family; Visit Provider Internal Medicine Hematology & Oncology | DX: K76.9 Liver disease, unspecified (principal); N28.9 Disorder of kidney and ureter, unspecified; R97.20 Elevated prostate specific antigen [PSA]; Z85.46 Personal history of malignant neoplasm of prostate; Z92.3 Personal history of irradiation | CPT/HCPCS: 99213; 99214 ==